=== PATIENT | female | born 1985 | race Caucasian/White ===

== ENCOUNTER 2020-04-05 16:36 | Emergency (ER) | payer SELFPAY ==
[~2020-04-05] VITALS: Ht 157.5 cm; Wt 52.2 kg
[2020-04-05 16:43] VITALS: BP 119/63
[2020-04-05] MEDS ORDERED: HYDROcodone/APAP 5 MG/325 MG (LORTAB) TAB PO ONE (17:00)
--- NOTE | 2020-04-05 17:02 | ED Back Pain ---
General Chief Complaint: Back Problems Stated Complaint: LEFT SIDE PAIN Nursing Triage Note: PT AMB TO [facility] COMPLAINT OF LEFT SIDE BACK PAIN. STATES HURT HER BACK WHILE AT WORK. HAS BEEN SEEN BY URGENT CARE FOR WORK COMP AND HAS APPOINTMENT TO SEE SPECIALIST TOMORROW. Nursing Sepsis Screen: No Definite Risk Source of Information: Patient Exam Limitations: No Limitations History of Present Illness Date Seen by Provider: Apr 05, 2020 Time Seen by Provider: 16:50 Initial Comments Here with uncontrolled left low back pain after injury yesterday at work. 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 They're concerned that she has sciatic injury. She was seen by the Worker's Compensation doctor deny mason prescribed ibuprofen and cyclobenzaprine as well as a steroid. She states the pain is relentless and then resolved. It's on the left side. She denies numbness between her legs, bowel or bladder incontinence or weakness. She does have follow-up with specialist tomorrow but couldn't take the pain so came here for further pain control. Timing/Duration: 24 Hours Severity: Moderate Pain/Injury Location: Back Radiation: Buttocks Method of Injury: Other (lifting) Modifying Factors: Worse With Immobilization, Worse With Movement Associated Symptoms: muscle spasms; No weakness, No numbness in legs/feet, No tingling in legs/feet, No sensory/motor loss; lower back pain; No loss of bladder control, No loss of bowel control Allergies and Home Medications Allergies Coded Allergies: No Known Drug Allergies (Unverified , 04/05/20) Patient Home Medication List Home Medication List Reviewed: Yes Review of Systems Constitutional: No chills, No fever Respiratory: no symptoms reported Cardiovascular: no symptoms reported Gastrointestinal: no symptoms reported Genitourinary: no symptoms reported Musculoskeletal: see HPI Psychiatric/Neurological: See HPI Past Memwteg-Fmluak-Lvxzpc Hx Past Med/Social Hx: Reviewed Nursing Past Med/Soc Hx Patient Social History Alcohol Use: Denies Use Recreational Drug Use: No Smoking Status: Current Everyday Smoker Recent Foreign Travel: No Contact w/Someone Who Travel: No Recent Infectious Disease Expo: No Recent Hopitalizations: No Immunizations Up To Date Tetanus Booster (TDap): Unknown PED Vaccines UTD: Yes Seasonal Allergies Seasonal Allergies: No Past Medical History Surgeries: Yes Section, Tubal Ligation Respiratory: No Cardiac: No Neurological: No Gastrointestinal: No Musculoskeletal: No Endocrine: No HEENT: No Cancer: No Psychosocial: Yes Anxiety Integumentary: No Blood Disorders: No Family Medical History Reviewed Nursing Family Hx Physical Exam Vital Signs Vital Signs - First Documented 04/05/20 16:43 Pulse 76 Resp 20 B/P (MAP) 119/63 (81) Pulse Ox 98 O2 Delivery Room Air Capillary Refill : Less Than 3 Seconds Height, Weight, BMI Height: '" Weight: lbs. oz. kg; 21.00 BMI Method: General Appearance: No Apparent Distress, WD/WN Cardiovascular: Regular Rate, Rhythm, No Murmur Respiratory: Lungs Clear, Normal Breath Sounds Back: No Vertebral Tenderness, Muscle Spasm (left low paraspinous), Other (tender at the left SI joint) Neurologic/Psychiatric: Alert, Oriented x3 Skin: Normal Color, Warm/Dry Progress/Results/Core Measures Results/Orders My Orders Orders - CARLOS MUSTAFA MD Lortab 5mg Po (04/05/20 17:00) Vital Signs/I&O 04/05/20 16:43 Pulse 76 Resp 20 B/P (MAP) 119/63 (81) Pulse Ox 98 O2 Delivery Room Air Blood Pressure Mean: 81 Progress Progress Note : Progress Note Seen and evaluated. I did discuss [id number]-[id number] options to add to her the rapy. We will give hydrocodone 5/325 one tablet by mouth now. She will follow-up with her specialist tomorrow. Discharged home with return precautions. Patient verbalize understanding instructions and agreement with plan. Departure Impression Primary Impression: Left low back pain Qualified Codes: M54.42 - Lumbago with sciatica, left side Disposition: 01 HOME, SELF-CARE Condition: Stable Departure-Patient Inst. Decision time for Depature: 17:01 Patient Instructions: Low Back Pain (DC) Add. Discharge Instructions: All discharge instructions reviewed with patient and/or family. Voiced understanding. You may use ajie-pkq-atlonaz Icy Hot with lidocaine patches, Aspercreme with lid ocaine patches, Salonpas with lidocaine patches or similar items to area of concern per package directions. You may take ibuprofen 600 mg every 6 hours as needed for pain. You may also take Tylenol/acetaminophen 1000 mg every 8 hours as needed for pain. Follow-up with your specialist tomorrow for recheck and further evaluation. Return for worse pain, weakness, numbness between your legs, difficulties with walking or going to the bathroom or other concerns as needed. CARLOS MUSTAFA MD Apr 05, 2020 17:02
== END 2020-04-05 17:15 | disposition home or self-care (01) ==
LOC: ER 16:37
DX: M54.42 Lumbago with sciatica, left side (principal); F17.200 Nicotine dependence, unspecified, uncomplicated
CPT/HCPCS: 99283

== ENCOUNTER 2020-04-20 20:53 | Emergency (ER) | payer SELFPAY ==
[~2020-04-20] VITALS: Ht 157.5 cm; Wt 52.2 kg
--- NOTE | 2020-04-20 21:20 | ED Abdominal Pain ---
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 Timing/Duration: 1-3 Hours Severity/Quality: Moderate Radiation: No Radiation Activities at Onset: Activity Modifying Factors: Worsens With Movement, Worsens With Palpation Associated Symptoms: Denies Symptoms (NAKUL GONZALEZ APRN) Allergies and Home Medications Allergies Coded Allergies: No Known Drug Allergies (Unverified , 04/05/20) Patient Home Medication List Home Medication List Reviewed: Yes (NAKUL GONZALEZ APRN) Review of Systems Review of Systems Constitutional: see HPI EENTM: No Symptoms Reported Respiratory: No Symptoms Reported Cardiovascular: No Symptoms Reported Gastrointestinal: See HPI, Abdominal Pain Genitourinary: No Symptoms Reported Musculoskeletal: no symptoms reported Skin: no symptoms reported Psychiatric/Neurological: No Symptoms Reported Endocrine: No Symptoms Reported Hematologic/Lymphatic: No Symptoms Reported (NAKUL GONZALEZ APRN) Past Bilkegw-Ovgcdr-Klxvle Hx Patient Social History Recent Foreign Travel: No Contact w/Someone Who Travel: No Recent Hopitalizations: No (NAKUL GONZALEZ APRN) Immunizations Up To Date Tetanus Booster (TDap): Unknown PED Vaccines UTD: Yes (NAKUL GONZALEZ APRN) Seasonal Allergies Seasonal Allergies: No (NAKUL GONZALEZ APRN) Past Medical History Surgeries: Yes Section, Tubal Ligation Respiratory: No Cardiac: No Neurological: No Gastrointestinal: No Musculoskeletal: No Endocrine: No HEENT: No Cancer: No Psychosocial: Yes Anxiety Integumentary: No Blood Disorders: No (NAKUL GONZALEZ APRN) Physical Exam Vital Signs Vital Signs - First Documented 04/20/20 21:10 Temp 36.3 Pulse 73 Resp 20 B/P (MAP) 111/59 (76) Pulse Ox 98 O2 Delivery Room Air (ANUEL CHIN) Vital Signs Capillary Refill : (NAKUL GONZALEZ APRN) Height/Weight/BMI Height: '" Weight: lbs. oz. kg; 21.00 BMI Method: General Appearance: WD/WN, no apparent distress HEENT: PERRL/EOMI, normal ENT inspection Neck: non-tender, full range of motion Respiratory: lungs clear, normal breath sounds, no respiratory distress, no accessory muscle use Cardiovascular: regular rate, rhythm, no murmur Gastrointestinal: normal bowel sounds, soft, tenderness Genital/Rectal: other (pelvic exam with tee RN at the bedside. No CMT, a bit of blood in the vaginal vault. small amount of purulent mucoid discharge from cervical os. ) Extremities: normal range of motion, non-tender Neurologic/Psychiatric: alert, normal mood/affect, oriented x 3 Skin: normal color, warm/dry (NAKUL GONZALEZ APRN) Progress/Results/Core Measures Results/Orders Lab Results Laboratory Tests Test 04/20/20 21:14 04/20/20 21:20 04/20/20 22:04 Range/Units Urine Color YELLOW Urine Clarity SL CLOUDY Urine pH 6.5 5-9 Urine Specific [place] 1.025 H 1.016-1.022 Urine Protein 1+ H NEGATIVE Urine Glucose (UA) NEGATIVE NEGATIVE Urine Ketones TRACE H NEGATIVE Urine Nitrite NEGATIVE NEGATIVE Urine Bilirubin NEGATIVE NEGATIVE Urine Urobilinogen 1.0 < = 1.0 MG/DL Urine Leukocyte Esterase TRACE H NEGATIVE Urine RBC (Auto) 3+ H NEGATIVE Urine RBC 5-10 H /HPF Urine WBC 10-25 H /HPF Urine Squamous Epithelial Cells 25-50 H /HPF Urine Crystals PRESENT H /LPF Urine Amorphous Sediment FEW LIONEL URATES H /LPF Urine Bacteria MODERATE H /HPF Urine Casts NONE /LPF Urine Mucus NEGATIVE /LPF Urine Culture Indicated YES Urine Opiates Screen NEGATIVE NEGATIVE Urine Oxycodone Screen NEGATIVE NEGATIVE Urine Methadone Screen NEGATIVE NEGATIVE Urine Propoxyphene Screen NEGATIVE NEGATIVE Urine Barbiturates Screen NEGATIVE NEGATIVE Ur Tricyclic Antidepressants Screen NEGATIVE NEGATIVE Urine Phencyclidine Screen NEGATIVE NEGATIVE Urine Amphetamines Screen NEGATIVE NEGATIVE Urine Methamphetamines Screen NEGATIVE NEGATIVE Urine Benzodiazepines Screen NEGATIVE NEGATIVE Urine Cocaine Screen NEGATIVE NEGATIVE Urine Cannabinoids Screen NEGATIVE NEGATIVE White Blood Count 13.1 H 4.3-11.0 10^3/uL Red Blood Count 4.41 3.80-5.11 10^6/uL Hemoglobin 14.4 11.5-16.0 g/dL Hematocrit 43 35-52 % Mean Corpuscular Volume 98 80-99 fL Mean Corpuscular Hemoglobin 33 25-34 pg Mean Corpuscular Hemoglobin Concent 33 32-36 g/dL Red Cell Distribution Width 13.0 10.0-14.5 % Platelet Count 312 130-400 10^3/uL Mean Platelet Volume 9.7 9.0-12.2 fL Immature Granulocyte % (Auto) 0 % Neutrophils (%) (Auto) 67 42-75 % Lymphocytes (%) (Auto) 20 12-44 % Monocytes (%) (Auto) 11 0-12 % Eosinophils (%) (Auto) 1 0-10 % Basophils (%) (Auto) 1 0-10 % Neutrophils # (Auto) 8.8 H 1.8-7.8 10^3/uL Lymphocytes # (Auto) 2.6 1.0-4.0 10^3/uL Monocytes # (Auto) 1.4 H 0.0-1.0 10^3/uL Eosinophils # (Auto) 0.2 0.0-0.3 10^3/uL Basophils # (Auto) 0.1 0.0-0.1 10^3/uL Immature Granulocyte # (Auto) 0.1 0.0-0.1 10^3/uL Sodium Level 139 135-145 MMOL/L Potassium Level 4.1 3.6-5.0 MMOL/L Chloride Level 106 98-107 MMOL/L Carbon Dioxide Level 24 21-32 MMOL/L Anion Gap 9 5-14 MMOL/L Blood Urea Nitrogen 11 7-18 MG/DL Creatinine 1.01 0.60-1.30 MG/DL Estimat Glomerular Filtration Rate > 60 BUN/Creatinine Ratio 11 Glucose Level 89 70-105 MG/DL Calcium Level 9.1 8.5-10.1 MG/DL Serum Test, Qualitative NEGATIVE NEGATIVE (ANUEL CHIN) Medications Given in ED Current Medications Medications Dose Ordered Sig/Alicia Route Start Time Stop Time Status Last Admin Dose Admin Ceftriaxone Sodium 1000 mg/ Sterile Water 10 ml @ 200 mls/hr ONCE ONCE IV 04/20/20 22:15 04/20/20 22:17 DC 04/20/20 22:26 200 MLS/HR Ketorolac Tromethamine 15 mg ONCE ONCE IVP 04/20/20 21:30 04/20/20 21:31 DC 04/20/20 21:33 15 MG (ANUEL CHIN) Vital Signs/I&O 04/20/20 21:10 Temp 36.3 Pulse 73 Resp 20 B/P (MAP) 111/59 (76) Pulse Ox 98 O2 Delivery Room Air (ANUEL CHIN) Progress Progress Note : Time: 22:20 Progress Note I assumed care of this patient. Report of pelvic exam showing no cervical motion tenderness but positive for yellow-green mucoid discharge. She has discharge after lifting someone with a bloody appearance per history. I agree with the above documented history and physical exam. Plan is to give her Rocephin and azithromycin for cervicitis get outpatient labs ordered and obtain a CT of the abdomen and pelvis. We are awaiting the results of the CT abdomen pelvis which the patient is currently down in radiology obtaining. (ANUEL CHIN) Diagnostic Imaging Diagonstic Imaging: CT Plain Films/CT/US/NM/MRI: abdomen, pelvis Comments Prominent follicle left ovary. Tubal occlusive device noted. 6 mm pulmonary nodule within the right lower lobe. In the absence of prior imaging demonstrate stability, consider follow-up according to Fleischner Society criteria. Reviewed: Reviewed Night [facility] Study, Reviewed by Me (ANUEL CHIN) Departure Communication (Admissions) 0-Rocephin and Zithromax ordered for the cervical discharge. Spoke with Dr. Chin, he has taken over the case, I will be leaving. CT is pending and wet prep is pending. I did discuss with the patient the sign of infection on cervix. (NAKUL GONZALEZ APRN) Impression Primary Impression: Cervical discharge Additional Impressions: Pelvic pain Right lower lobe pulmonary nodule Disposition: HOME, SELF-CARE Condition: Stable Departure-Patient Inst. Decision time for Depature: 22:19 (NAKUL GONZALEZ APRN) Referrals: NO,LOCAL PHYSICIAN (PCP/Family) Primary Care Physician Patient Instructions: Acute Pelvic Pain Add. Discharge Instructions: 1. Return to ER for any concerns 2. Follow-up with your doctor next week and discuss Right lower lobe 6 mm nodule of the lung. 3. Naproxen 2 tablets twice a day as necessary for pain. 4. Tylenol 1000 mg every 8 hours as necessary for pain. 5. heating pads as necessary for discomfort. Work/School Note: Work Release Form Date Seen in the Emergency Department: Apr 20, 2020 Return to Work: Apr 22, 2020 Restrictions: No Restrictions NAKUL GONZALEZ APRN Apr 20, 2020 21:20 ANUEL CHIN Apr 20, 2020 22:29
[2020-04-20 21:23] LABS: BILIRUBIN,URINE NEGATIVE (NEGATIVE); CLARITY,URINE SL CLOUDY; COLOR,URINE YELLOW; GLUCOSE, URINE (UA) NEGATIVE (NEGATIVE); KETONES,URINE TRACE (NEGATIVE); LEUKOCYTE ESTERASE ,URINE TRACE (NEGATIVE); NITRITE,URINE NEGATIVE (NEGATIVE); PH,URINE 6.5 (5-9); PROTEIN,URINE 1+ (NEGATIVE)
[2020-04-20] MEDS ORDERED: KETOROLAC 30 MG/ML VIAL IVP ONE (21:30)
[2020-04-20 21:31] LABS: BASOPHILS # (AUTO) 0.1 10^3/uL (0.0-0.1); BASOPHILS % (AUTO) 1 % (0-10); EOSINOPHILS # (AUTO) 0.2 10^3/uL (0.0-0.3); EOSINOPHILS % (AUTO) 1 % (0-10); HEMATOCRIT 43 % (35-52); HEMOGLOBIN 14.4 g/dL (11.5-16.0); LYMPHOCYTES # (AUTO) 2.6 10^3/uL (1.0-4.0); LYMPHOCYTES % (AUTO) 20 % (12-44); MEAN CORPUSCULAR HEMOGLOBIN 33 pg (25-34); MEAN CORPUSCULAR HGB CONC 33 g/dL (32-36); MEAN CORPUSCULAR VOLUME 98 fL (80-99); MEAN PLATELET VOLUME 9.7 fL (9.0-12.2); MONOCYTES # (AUTO) 1.4 10^3/uL (0.0-1.0); MONOCYTES % (AUTO) 11 % (0-12); NEUTROPHILS # (AUTO) 8.8 10^3/uL (1.8-7.8); NEUTROPHILS % (AUTO) 67 % (42-75); PLATELET COUNT 312 10^3/uL (130-400); WHITE BLOOD COUNT 13.1 10^3/uL (4.3-11.0)
[2020-04-20 21:39] LABS: BACTERIA,URINE MODERATE /HPF; SQUAMOUS EPITHELIAL CELL,UR 25-50 /HPF
[2020-04-20 21:40] LABS: AMORPHOUS SEDIMENT,UR FEW AMOR URATES /LPF
[2020-04-20 21:42] LABS: AMPHETAMINE SCREEN, URINE NEGATIVE (NEGATIVE); BARBITURATE SCREEN URINE NEGATIVE (NEGATIVE); BENZODIAZEPINES SCREEN URINE NEGATIVE (NEGATIVE); CANNABINOID SCREEN, URINE NEGATIVE (NEGATIVE); COCAINE SCREEN URINE NEGATIVE (NEGATIVE); METHADONE STAT NEGATIVE (NEGATIVE); METHAMPHETAMINE SCREEN URINE S NEGATIVE (NEGATIVE); OPIATE SCREEN URINE NEGATIVE (NEGATIVE); OXYCODONE STAT NEGATIVE (NEGATIVE); PROPOXYPHENE STAT NEGATIVE (NEGATIVE); TRICYCLIC ANTIDEPRESSANTS SCRE NEGATIVE (NEGATIVE)
[2020-04-20 22:00] LABS: CHLORIDE 106 MMOL/L (98-107); POTASSIUM 4.1 MMOL/L (3.6-5.0); SODIUM 139 MMOL/L (135-145)
[2020-04-20 22:01] LABS: CALCIUM 9.1 MG/DL (8.5-10.1); GLUCOSE 89 MG/DL (70-105)
[2020-04-20 22:03] LABS: CARBON DIOXIDE 24 MMOL/L (21-32)
[2020-04-20 22:05] LABS: CREATININE SERUM 1.01 MG/DL (0.60-1.30); GFR ESTIMATED > 60
[2020-04-20 22:06] LABS: BUN/CREATININE RATIO 11
[2020-04-20] MEDS ORDERED: cefTRIAXone FOR IV USE 1,000 MG in WATER (STERILE) FOR INJECTION 10 ML IV ONE (22:15)
[2020-04-20] MEDS ORDERED: AZITHROMYCIN 250 MG TAB (ZITHROMAX) PO SCH (22:15)
[2020-04-20 23:08] VITALS: BP 112/67
--- NOTE | 2020-04-21 07:11 | Diagnostic Imaging Report ---
PROCEDURE: CT abdomen and pelvis without contrast. TECHNIQUE: Multiple contiguous axial images were obtained through the abdomen and pelvis without the use of intravenous contrast. Auto Exposure Controls were utilized during the CT exam to meet ALARA standards for radiation dose reduction. INDICATION: Left lower quadrant and pelvic pain. Vaginal bleeding. COMPARISON: None FINDINGS: Included portions of lung bases show 6 mm micronodule within the posterior medial base of the right lower lobe. There is no prior available for comparison. Juxtapleural micronodules are also noted posteriorly within the left lower lobe and measures 4 mm (images 13 and 6, series 2). CT ABDOMEN: Normal appendix is identified. Small bowel loops are nondistended. The kidneys, adrenal glands, spleen, pancreas, and liver have an unremarkable noncontrast CT appearance. There is no loculated fluid collection, free fluid, nor free air within the abdomen. No abnormal mesenteric or retroperitoneal adenopathy is seen. Osseous structures show no acute abnormalities. CT pelvis: Urinary bladder is unopacified and minimally distended. No calculi are seen within urinary bladder. Surgical clips related previous tubal ligation are noted. No abnormal pelvic adenopathy is seen. There is no loculated fluid collection, free fluid or free air within the pelvis. Osseous structures show no acute abnormalities. IMPRESSION: 1. No acute abnormalities are seen within the abdomen or pelvis. 2. Bilateral pulmonary micronodules. Please see below for follow-up recommendations. PULMONARY NODULE FOLLOW-UP Multiple nodules: <6 mm: * Low risk patient - no routine follow up * High risk patient - optional CT at 12 months 6-8 mm in size: * Low risk patient - Ct at 3-6 months, then consider CT at 18-24 months * High risk patient - CT at 3-6 months, then at 18-24 months >8 mm: * Low risk patient - CT at 3-6 months, then consider CT at 18-24 months * High risk patient - CT at 3-6 months, then at 18-24 months (Use most suspicious nodule as guide to management. Follow up interval may vary according to size and risk) Dictated by: Dictated on workstation # [id number]
== END 2020-04-20 23:08 | disposition home or self-care (01) ==
LOC: EDUNIT# 20:53 → ER 20:54
DX: N89.8 Other specified noninflammatory disorders of vagina (principal); R91.1 Solitary pulmonary nodule
CPT/HCPCS: 36415; 74176; 80048; 80306; 81000; 84703; 85025; 87070; 87088; 87205; 87210; 87491; 87591

== ENCOUNTER 2020-11-16 16:13 | Emergency (ER) | payer SELFPAY ==
[~2020-11-16] VITALS: Ht 158 cm; Wt 54.0 kg
[2020-11-16 16:20] VITALS: BP 116/81
--- NOTE | 2020-11-16 16:44 | ED Cough/URI ---
General Chief Complaint: Fever-Adult/Adol Stated Complaint: FEVER/MUSCLE PAIN/HEADACHE/CHILLS Nursing Triage Note: FEVER STARTING ON SAT. Sepsis Screen: Possible Severe Sepsis Risk Source: patient Exam Limitations: no limitations History of Present Illness Date Seen by Provider: Nov 16, 2020 Time Seen by Provider: 16:30 Initial Comments To ER with reports of fever and nasal congestion as well as headache that began 48 hours ago. She denies cough or shortness of breath, denies nausea vomiting diarrhea or dysuria. 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 Timing/Duration: constant Severity/Quality: no cough Associated Symptoms: fever/chills (Fever max at home 102), headache Allergies and Home Medications Allergies Coded Allergies: No Known Drug Allergies (Unverified , 04/05/20) Home Medications No Active Prescriptions or Reported Meds Patient Home Medication List Home Medication List Reviewed: Yes Review of Systems Review of Systems Constitutional: see HPI, chills, fever EENTM: see HPI Respiratory: no symptoms reported Cardiovascular: no symptoms reported Genitourinary: no symptoms reported Musculoskeletal: no symptoms reported Psychiatric/Neurological: No Symptoms Reported Hematologic/Lymphatic: No Symptoms Reported Past Qelfiny-Ogohjb-Qxiiqm Hx Patient Social History Alcohol Use: Denies Use Smoking Status: Current Everyday Smoker Recent Infectious Disease Expo: No Recent Hopitalizations: No Immunizations Up To Date Tetanus Booster (TDap): Unknown PED Vaccines UTD: Yes Seasonal Allergies Seasonal Allergies: No Past Medical History Surgeries: Yes Section, Tubal Ligation Respiratory: No Cardiac: No Neurological: No Gastrointestinal: No Musculoskeletal: No Endocrine: No HEENT: No Cancer: No Psychosocial: Yes Anxiety Integumentary: No Blood Disorders: No Physical Exam Vital Signs - First Documented 11/16/20 16:20 Temp 37.3 Pulse 92 Resp 16 B/P (MAP) 116/81 (93) Pulse Ox 98 O2 Delivery Room Air Capillary Refill : Less Than 3 Seconds Height: '" Weight: lbs. oz. kg; 21.00 BMI Method: General Appearance: WD/WN, no apparent distress, other (She is afebrile here despite no use of antipyretics today) Eyes: Bilateral Eye Normal Inspection, Bilateral Eye PERRL, Bilateral Eye EOMI HEENT: PERRL/EOMI, normal ENT inspection, TMs normal Neck: non-tender, full range of motion Respiratory: normal breath sounds, no respiratory distress, no accessory muscle use Cardiovascular: regular rate, rhythm, no murmur Gastrointestinal: normal bowel sounds, non tender, soft Neurologic/Psychiatric: alert, normal mood/affect, oriented x 3 Skin: normal color, warm/dry nontoxic appearing, without tachycardia without tachypnea without hypoxia. Progress/Results/Core Measures Suspected Sepsis Recent Fever Within 48 Hours: Yes Infection Criteria Present: Suspected New Infection New/Unexplained Altered Menta: No Sepsis Screen: Possible Severe Sepsis Risk SIRS Temperature: Pulse: 92 Respiratory Rate: 16 Blood Pressure 116 /81 Mean: 93 Results/Orders Lab Results Laboratory Tests Test 11/16/20 16:29 Range/Units Coronavirus 2019 (LEDY) Not Detected Not Detecte Micro Results Microbiology 11/16/20 Influenza Types A,B Antigen (TIMA) - Final, Complete My Orders Orders - NAKUL GONZALEZ APRN Influenza A And B Antigens (11/16/20 16:41) Covid 19 Inhouse Test (11/16/20 16:41) Vital Signs/I&O 11/16/20 16:20 Temp 37.3 Pulse 92 Resp 16 B/P (MAP) 116/81 (93) Pulse Ox 98 O2 Delivery Room Air Capillary Refill : Less Than 3 Seconds Blood Pressure Mean: 93 Departure Impression Primary Impression: Viral syndrome Disposition: 01 HOME, SELF-CARE Condition: Stable Departure-Patient Inst. Decision time for Depature: 17:11 Referrals: NO,LOCAL PHYSICIAN (PCP/Family) Primary Care Physician Patient Instructions: Viral Syndrome (DC) Add. Discharge Instructions: 1. Tylenol and ibuprofen for pain or fever control. Follow-up with your doctor next week. Return to ER for any worsening. All discharge instructions reviewed with patient and/or family. Voiced understanding. Scripts No Active Prescriptions or Reported Meds Work/School Note: Work Release Form Date Seen in the Emergency Department: Nov 16, 2020 Return to Work: Nov 18, 2020 NAKUL GONZALEZ APRN Nov 16, 2020 16:44
== END 2020-11-16 17:10 | disposition home or self-care (01) ==
LOC: EDUNIT# 16:13 → ER 16:15
DX: B34.9 Viral infection, unspecified (principal); F17.200 Nicotine dependence, unspecified, uncomplicated; Z20.822 Contact with and (suspected) exposure to COVID-19
CPT/HCPCS: 87804; U0002; 87635

== ENCOUNTER 2020-11-24 19:35 | Emergency (ER) | payer SELFPAY ==
[~2020-11-24] VITALS: Ht 158 cm; Wt 54.0 kg
[2020-11-24 19:43] VITALS: BP 105/61
--- NOTE | 2020-11-24 20:12 | ED Integumentary General ---
General Chief Complaint: Skin/Wound Problems Stated Complaint: RASH ON L ARM / ITCHING Nursing Triage Note: PRESENTS TO FT2 VIA POV ACCOMPANIED BY S/O W/CO RASH TO L FOREARM. 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 STATES RASH HAS PROGRESSIVELY SPREAD SINCE ONSET ON 11/23/20. History of Present Illness Date Seen by Provider: November 24, 2020 Time Seen by Provider: 19:55 Initial Comments 35-year-old female presents with a rash to her left forearm that began yesterday. She is unsure if she was exposed to poison magda or poison sumac. She has been using tubu-krv-puswqhy topical creams with no improvement. She has not noticed it to spread beyond her left forearm. Timing/Duration: yesterday Possible Cause: exposure to allergen Modifying Factors: improves with calamine lotion Associated Symptoms: denies symptoms Allergies and Home Medications Allergies Coded Allergies: No Known Drug Allergies (Unverified , 04/05/20) Home Medications No Active Prescriptions or Reported Meds Patient Home Medication List Home Medication List Reviewed: Yes Review of Systems Review of Systems Constitutional: no symptoms reported, see HPI Skin: see HPI, rash All Other Systems Reviewed Negative Unless Noted: Yes Past Hneuquo-Ezlccs-Iqwpsu Hx Past Med/Social Hx: Reviewed Nursing Past Med/Soc Hx Patient Social History Alcohol Use: Denies Use Smoking Status: Current Everyday Smoker 2nd Hand Smoke Exposure: Yes Recent Infectious Disease Expo: No Recent Hopitalizations: No Immunizations Up To Date Tetanus Booster (TDap): Unknown PED Vaccines UTD: Yes Seasonal Allergies Seasonal Allergies: No Past Medical History Surgeries: Yes Section, Tubal Ligation Respiratory: No Cardiac: No Neurological: No Gastrointestinal: No Musculoskeletal: No Endocrine: No HEENT: No Cancer: No Psychosocial: Yes Anxiety Integumentary: No Blood Disorders: No Physical Exam Vital Signs Vital Signs - First Documented 11/24/20 19:43 Temp 36.4 Pulse 81 Resp 18 B/P (MAP) 105/61 (76) Pulse Ox 99 O2 Delivery Room Air Capillary Refill : Less Than 3 Seconds General Appearance: WD/WN Neck: non-tender, full range of motion, supple, normal inspection Cardiovascular: normal peripheral pulses, regular rate, rhythm Respiratory: chest non-tender, lungs clear, normal breath sounds Neurologic/Psychiatric: no motor/sensory deficits, alert, normal mood/affect, oriented x 3 Skin: normal color Skin Problem Location: upper extremities (Left forearm) Skin Problem Character: macules, papules Progress/Results/Core Measures Results/Orders My Orders Orders - MILDRED JACOBS Dexamethasone Injection (Decadron Inje (11/24/20 20:15) Medications Given in ED Current Medications Medications Dose Ordered Sig/Alicia Route Start Time Stop Time Status Last Admin Dose Admin Dexamethasone Sodium Phosphate 10 mg ONCE ONCE IM 11/24/20 20:15 11/24/20 20:16 DC 11/24/20 20:19 10 MG Vital Signs/I&O 11/24/20 19:43 Temp 36.4 Pulse 81 Resp 18 B/P (MAP) 105/61 (76) Pulse Ox 99 O2 Delivery Room Air Blood Pressure Mean: 76 Departure Impression Primary Impression: Allergic contact dermatitis Qualified Codes: L23.89 - Allergic contact dermatitis due to other agents Disposition: HOME, SELF-CARE Condition: Improved Departure-Patient Inst. Decision time for Depature: 20:08 Referrals: NO,LOCAL PHYSICIAN (PCP/Family) Primary Care Physician Patient Instructions: Contact Dermatitis (DC) Add. Discharge Instructions: Continue to apply the calamine lotion 3-4 times daily as needed to rash. Take Benadryl 25 mg every 8 hours as needed for itching or rash. Take Pepcid 20 mg twice daily for the next 3 to 4 days. Follow-up with your primary care provider if symptoms are not improving or worsen. You may use Aveeno soaks to make a paste and put over the area of the rash. Return to the emergency department for new, urgent care needs. All discharge instructions reviewed with patient and/or family. Voiced understanding. Scripts No Active Prescriptions or Reported Meds MILDRED JACOBS November 24, 2020 20:12
== END 2020-11-24 20:23 | disposition home or self-care (01) ==
LOC: EDUNIT# 19:35 → ER 19:37
DX: L23.89 Allergic contact dermatitis due to other agents (principal); F17.200 Nicotine dependence, unspecified, uncomplicated
CPT/HCPCS: 99284

== ENCOUNTER 2021-01-01 21:34 | Emergency (ER) | payer SELFPAY | END 2021-01-01 22:32 | disposition left against medical advice (07) | LOC: EDUNIT# 21:34 → ER 21:35 | DX: M25.572 Pain in left ankle and joints of left foot (principal) ==

== ENCOUNTER 2021-05-04 19:05 | Emergency (ER) | payer OTHER ==
[~2021-05-04] VITALS: Ht 157.4 cm; Wt 52.3 kg
--- NOTE | 2021-05-04 19:24 | ED Headache ---
General Chief Complaint: Head/Cervical Problems Stated Complaint: MIGRAINE Source: patient History of Present Illness Date Seen by Provider: May 04, 2021 Time Seen by Provider: 19:15 Initial Comments PT ARRIVES VIA POV FROM HOME WITH MALE S.O. C/O HEADACHE SINCE YESTERDAY HEADACHE IS IN BACK OF HEAD HAS HAD "MIGRAINES' SINCE SHE WAS 12 YEARS OLD, AND THIS IS THE SAME HER CHRONIC HEADACHES STATES SHE GETS HEADACHES ABOUT EVERY 2 MONTHS NO VISION CHANGES NO NAUSEA/VOMITING NO NECK PAIN OR STIFFNESS NO DIZZINESS NO PARESTHESIAS OR MOTOR DEFICITS NO FEVER OR RECENT ILLNESS--STATES SHE ALWAYS HAS A RUNNY NOSE,DOES NOT TAKE ANYTHING FOR IT AND IS NO DIFFERENT THAN NORMAL TOOK 500 MG TYLENOL AT 10 AM TODAY, NOTHING ELSE FOR PAIN HAS NOT SOUGHT CARE UNTIL TODAY SYMPTOMS NO DIFFERENT TODAY LMP--END OF , NORMAL. PT HAS HAD BTL STATES SHE WORKS AT [employer] STATES SHE DIDN'T GO TO WORK YESTERDAY--"GOT MY TIRES FIXED INSTEAD"; BUT WORKED ALL DAY TODAY, AND WANTS A WORK EXCUSE FOR TOMORROW AND YESTERDAY. STATES SHE GOES TO WORK AT 0445 IN THE MORNING PT STATES SHE IS NOT VACCINATED AGAINST COVID, BUT SHE AND MALE S.O. HAD COVID- 19 IN FEBRUARY--NO HOSPITALIZATION OR TREATMENT NO KNOWN SICK CONTACTS PCP: [facility] Allergies and Home Medications Allergies Coded Allergies: No Known Drug Allergies (Unverified , 04/05/20) Patient Home Medication List Home Medication List Reviewed: Yes No Active Prescriptions or Reported Meds Review of Systems Review of Systems Constitutional: no symptoms reported Eyes: No Symptoms Reported Ears, Nose, Mouth, Throat: no symptoms reported Respiratory: no symptoms reported Cardiovascular: no symptoms reported Gastrointestinal: no symptoms reported Genitourinary: no symptoms reported : No LMP: Apr 17, 2021 Musculoskeletal: no symptoms reported Skin: no symptoms reported Psychiatric/Neurological: See HPI, Headache Past Qyfmtok-Xjhxap-Dktxoz Hx Patient Social History Tobacco Use?: Yes (1 PPD) Tobacco type used: Cigarettes Smoking Status: Current Everyday Smoker Use of E-Cig and/or Vaping dev: No Substance use?: No (DENIES) Alcohol Use?: No (DENIES) Pt feels they are or have been: No Immunizations Up To Date Tetanus Booster (TDap): Unknown PED Vaccines UTD: Yes Influenza Vaccine Up-to-Date: No; Not Current Seasonal Allergies Seasonal Allergies: No Past Medical History Surgery/Hospitalization HX: X 1 IN 2008 BTL IN 2010 Surgeries: Yes Section, Tubal Ligation Respiratory: No Cardiac: No Neurological: No : No Reproductive Disorders: 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 oz. kg; 21.00 BMI Method: General Appearance: WD/WN, no apparent distress, thin, other (DOES NOT APPEAR TO BE IN ANY DISCOMFORT OR DISTRESS) HEENT: PERRL/EOMI, normal ENT inspection, TMs normal, pharynx normal Neck: other (VERY MILD CERVICAL PARAVERTEBRAL MUSCLE SPASMS AND TENDERNESS; FUL L ROM WITHOUT DIFFICULTY. ) Cardiovascular: regular rate, rhythm, no murmur Respiratory: normal breath sounds, no respiratory distress, no accessory muscle use Gastrointestinal: normal bowel sounds, soft Back: normal inspection Extremities: normal inspection Psychiatric: alert, oriented x 3 Crainal Nerves: normal hearing, normal speech, PERRL Coordination/Gait: normal gait Motor/Sensory: no motor deficit, no sensory deficit, no pronator drift Skin: normal color, warm/dry, tattoos/piercings Progress/Results/Core Measures Results/Orders My Orders Orders - CONSTANTINO HOWARD DO Ketorolac Injection (Toradol Injection) (05/04/21 19:30) Orphenadrine Inj (Ed Only) (Norflex Inje (05/04/21 19:30) Medications Given in ED Current Medications Medications Dose Ordered Sig/Alicia Route Start Time Stop Time Status Last Admin Dose Admin Ketorolac Tromethamine 60 mg ONCE ONCE IM 05/04/21 19:30 05/04/21 19:31 DC 05/04/21 19:25 60 MG Orphenadrine Citrate 60 mg ONCE ONCE IM 05/04/21 19:30 05/04/21 19:31 DC 05/04/21 19:26 60 MG Vital Signs/I&O 05/04/21 19:16 Temp 36.8 Pulse 75 Resp 18 B/P (MAP) 106/72 (83) Pulse Ox 98 O2 Delivery Room Air Progress Progress Note : Progress Note GIVEN TORADOL AND NORFLEX HEADACHE RELIEVED AT DISMISSAL Departure Impression Primary Impression: Headache Disposition: 01 HOME, SELF-CARE Condition: Stable Departure-Patient Inst. Decision time for Depature: 19:37 Referrals: [facility] Patient Instructions: Headache, Adult (DC) Add. Discharge Instructions: LOTS OF CLEAR LIQUIDS TYLENOL 1 GRAM/ MOTRIN 800 MG 4 TIMES A DAY NEEDED FOR PAIN MOIST HEAT TO NECK AT 20 MINUTE INTERVALS, YOU MAY ALTERNATE WITH ICE PACK IF NEEDED FOLLOW UP WITH [facility] TOMORROW IF NO BETTER All discharge instructions reviewed with patient and/or family. Voiced understanding. Scripts No Active Prescriptions or Reported Meds Work/School Note: Work Release Form Date Seen in the Emergency Department: May 04, 2021 CONSTANTINO HOWARD DO May 04, 2021 19:24
[2021-05-04] MEDS ORDERED: ORPHENADRINE 60 MG/2 ML (NORFLEX) AMP (ED ONLY) IM ONE (19:30)
[2021-05-04] MEDS ORDERED: KETOROLAC 60 MG/2 ML VIAL IM ONE (19:30)
[2021-05-04 19:43] VITALS: BP 102/66
== END 2021-05-04 19:41 | disposition home or self-care (01) ==
LOC: EDUNIT# 19:05 → ER 19:06
DX: R51.9 Headache, unspecified (principal); F17.210 Nicotine dependence, cigarettes, uncomplicated
CPT/HCPCS: 99284

== ENCOUNTER 2021-09-26 11:09 | Emergency (ER) | payer SELFPAY ==
[~2021-09-26] VITALS: Ht 154.4 cm; Wt 53.6 kg
[2021-09-26] MEDS ORDERED: ACHD5005 PO (11:38)
[2021-09-26] MEDS ORDERED: NAPR500T8 PO (11:38)
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
[2021-09-26 11:44] VITALS: BP 113/71
== END 2021-09-26 11:44 | disposition home or self-care (01) ==
LOC: EDUNIT# 11:09 → ER 11:13
DX: M25.511 Pain in right shoulder (principal); Z72.0 Tobacco use
CPT/HCPCS: 99282; A4565

== ENCOUNTER 2021-10-16 20:18 | Emergency (ER) | payer OTHER ==
[~2021-10-16] VITALS: Ht 157.5 cm; Wt 54.4 kg
[~2021-10-16 20:18] MED LIST: ACHD5005 PO; NAPR500T8 PO
[2021-10-16 20:35] VITALS: BP 103/70
[2021-10-16] MEDS ORDERED: NAPR-1071 PO (20:41)
[2021-10-16] MEDS ORDERED: METH-732 PO (20:41)
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
--- NOTE | 2021-10-16 20:52 | Diagnostic Imaging Report ---
INDICATION: Right-sided pain, injury radicular into the left lower extremity. FINDINGS: Lumbar statures are normal. The alignment is unremarkable. No acute or suspect endplate irregularity . Some mild degenerative sclerotic facet arthrosis at the L5-S1 level. No acute appearing abnormality, however, found. There is bilateral tubal ligation clips. No suspicious calcifications. IMPRESSION: Mild lumbosacral facet arthrosis but no acute or suspicious abnormality found. Dictated by: Dictated on workstation # [id number]
[2021-10-16] MEDS: ORPHENADRINE 60 MG/2 ML (NORFLEX) AMP (ED ONLY) IM ONE ×2 (20:54→20:57)
[2021-10-16] MEDS: KETOROLAC 60 MG/2 ML VIAL IM ONE ×2 (20:54→20:57)
== END 2021-10-16 20:58 | disposition home or self-care (01) ==
LOC: EDUNIT# 20:18 → ER 20:20
DX: S30.0XXA Contusion of lower back and pelvis, initial encounter (principal); Y04.2XXA Assault by strike against or bumped into by another person, initial encounter
CPT/HCPCS: 72100

== ENCOUNTER 2021-11-12 23:35 | Emergency (ER) | payer SELFPAY ==
[~2021-11-12] VITALS: Ht 157.5 cm; Wt 51.5 kg
[~2021-11-12 23:35] MED LIST changes: +METH-732 PO; +NAPR-1071 PO
[2021-11-13] MEDS ORDERED: ceFAZolin INJECTION 1,000 MG in NS (IVPB) 50 ML IV ONE ×2
--- NOTE | 2021-11-13 00:06 | ED General ---
General Chief Complaint: Breast Complaints Stated Complaint: HARD LUMP UNDER LEFT NIPPLE,SLIGHT FEVER Nursing Triage Note: C/O LUMP UNDER LEFT BREAST X2 WEEKS, CHANGE IN NIPPLE COLOR, INTERMITTANT FEVER SINCE MONDAY. Source of Information: Patient History of Present Illness Date Seen by Provider: Nov 12, 2021 Time Seen by Provider: 23:48 Initial Comments PT ARRIVES VIA POV FROM HOME C/O LUMP TO LEFT BREAST UNDER THE NIPPLE, FOR A FEW WEEKS STATES SHE BEGAN RUNNING A FEVER OF 101.9 LAST NIGHT TOOK TYLENOL 500 MG JUST PRIOR TO ARRIVAL OTHERWISE HAS NOT TAKEN ANYTHING ELSE FOR SYMPTOMS STATES HER NIPPLE HAS ALSO CHANGED COLOR NO DRAINAGE FROM THE NIPPLE NO OTHER SYMPTOMS HAS NOT SOUGHT CARE UNTIL TONIGHT NO DIFFERENT TONIGHT NEEDS AT WORK NOTE--DID NOT GO TO WORK TONIGHT AT 6:00 NO PRIOR BREAST PROBLEMS PT HAS NEVER HAD A MAMMOGRAM PT IS NOT OR DENIES ANY MEDICAL PROBLEMS OTHER THAN ANXIETY STATES "ALL KINDS OF CANCER IN MY FAMILY" LMP 1 1/2 WEEKS AGO, NORMAL. S/P BTL PCP: [facility]--ONLY GOES TO WALK IN CLINIC NEEDED. HAS NEVER HAD ROUTINE WELLNESS EXAMS Allergies and Home Medications Allergies Coded Allergies: No Known Drug Allergies (Unverified , 04/05/20) Patient Home Medication List Home Medication List Reviewed: Yes Sulfamethoxazole/Trimethoprim (Bactrim Ds Tablet) 1 Each Tablet, 1 EACH PO BID Prescribed by: CONSTANTINO HOWARD on 11/13/21 0103 Discontinued Medications Hydrocodone/Acetaminophen (Hydrocodone-Acetamin 5-325 mg) 1 Each Tablet, 1 TAB PO Q4H PRN for PAIN-MODERATE (5-7) Discontinued Reason: No Longer Taking Prescribed by: HIEU NUNN on 09/26/21 113 Last Action: Discontinued Methocarbamol (Methocarbamol) 750 Mg Tablet, 750 MG PO Q6-8HR Discontinued Reason: No Longer Taking Prescribed by: NAKUL GONZALEZ on 10/16/212040 Last Action: Discontinued Naproxen (Naproxen) 500 Mg Tablet.dr, 500 MG PO BID Discontinued Reason: No Longer Taking Prescribed by: HIEU NUNN on 09/26/21 1138 Last Action: Discontinued Naproxen (Naprosyn) 500 Mg Tablet, 500 MG PO BID PRN for PAIN-SEVERE (8-10) Discontinued Reason: No Longer Taking Prescribed by: NAKUL GONZALEZ on 10/16/212040 Last Action: Discontinued Review of Systems Review of Systems Constitutional: see HPI, fever EENTM: no symptoms reported Respiratory: no symptoms reported Cardiovascular: no symptoms reported Gastrointestinal: no symptoms reported Genitourinary: no symptoms reported : No Musculoskeletal: no symptoms reported Skin: see HPI Psychiatric/Neurological: No Symptoms Reported Hematologic/Lymphatic: No Symptoms Reported Immunological/Allergic: no symptoms reported Past Rijpwgn-Fitzoa-Jqstws Hx Patient Social History Tobacco Use?: Yes (1 PPD) Tobacco type used: Cigarettes Substance use?: No Alcohol Use?: No Pt feels they are or have been: No Immunizations Up To Date Tetanus Booster (TDap): Unknown PED Vaccines UTD: Yes Seasonal Allergies Seasonal Allergies: No Past Medical History Surgery/Hospitalization HX: , TUBAL Surgeries: Yes Section, Tubal Ligation Respiratory: No Cardiac: No Neurological: No Reproductive Disorders: No [employer] History: Tubal Ligation Sexually Transmitted Disease: Yes (GONORRHEA 2020) Genitourinary: No Gastrointestinal: No Musculoskeletal: No Endocrine: No HEENT: No Cancer: No Psychosocial: Yes Anxiety Integumentary: No Blood Disorders: No Physical Exam Vital Signs Vital Signs - First Documented 11/12/21 23:43 Temp 36.9 Pulse 84 Resp 18 B/P (MAP) 124/81 (95) Pulse Ox 98 O2 Delivery Room Air Capillary Refill : Less Than 3 Seconds Height, Weight, BMI Height: '" Weight: lbs. oz. kg; 20.00 BMI Method: General Appearance: No Apparent Distress, WD/WN, Thin Neck: Normal Inspection Respiratory: Normal Breath Sounds, No Accessory Muscle Use, No Respiratory Distress Cardiovascular: Regular Rate, Rhythm Gastrointestinal: Soft Extremity: Normal Inspection Neurologic/Psychiatric: Alert, Oriented x3, No Motor/Sensory Deficits, Normal Mood/Affect Skin: Normal Color, Warm/Dry, Other (LEFT BREAST WITH APPROXMIATELY 4 CM FIRM MASS IN AND AROUND NIPPLE, WITH RETRACTION OF NIPPLE. NO DRAINAGE. THERE IS SLIGHT ERYTHEMA TO NIPPLE AND APPROXIMATELY 1 CM BEYOND EDGES OF NIPPLE. ) Focused Exam Sepsis Stage: Ruled Out Reason for ruling out sepsis: DOES NOT MEET CRITERIA Possible Source: Skin/Soft Tissue Lactate Level 11/12/21 00:10: Lactic Acid Level 0.65 Time of Focused Exam: 01:00 Respiratory: Normal Breath Sounds Cardiovascular: Regular Rate, Rhythm Skin: normal color, warm/dry Lactic Acid Level Laboratory Tests Test 11/12/21 00:10 Lactic Acid Level 0.65 MMOL/L (0.50-2.00) Within 3hrs of presentation: Admin ABX, Blood cultures prior to ABX's, Focus exam, Lactate level Progress/Results/Core Measures Suspected Sepsis SIRS Temperature: Pulse: 84 Respiratory Rate: 18 Laboratory Tests 11/12/21 00:10: White Blood Count 6.9 Blood Pressure 124 /81 Mean: 95 11/12/21 00:10: Lactic Acid Level 0.65 Laboratory Tests 11/12/21 00:10: Creatinine 0.74, Platelet Count 267, Total Bilirubin 0.2 Results/Orders Lab Results Laboratory Tests Test 11/12/21 00:10 11/13/21 00:10 Range/Units White Blood Count 6.9 4.3-11.0 10^3/uL Red Blood Count 4.18 3.80-5.11 10^6/uL Hemoglobin 13.4 11.5-16.0 g/dL Hematocrit 39 35-52 % Mean Corpuscular Volume 94 80-99 fL Mean Corpuscular Hemoglobin 32 25-34 pg Mean Corpuscular Hemoglobin Concent 34 32-36 g/dL Red Cell Distribution Width 12.4 10.0-14.5 % Platelet Count 267 130-400 10^3/uL Mean Platelet Volume 9.9 9.0-12.2 fL Immature Granulocyte % (Auto) 0 % Neutrophils (%) (Auto) 45 42-75 % Lymphocytes (%) (Auto) 38 12-44 % Monocytes (%) (Auto) 14 H 0-12 % Eosinophils (%) (Auto) 3 0-10 % Basophils (%) (Auto) 1 0-10 % Neutrophils # (Auto) 3.1 1.8-7.8 10^3/uL Lymphocytes # (Auto) 2.6 1.0-4.0 10^3/uL Monocytes # (Auto) 1.0 0.0-1.0 10^3/uL Eosinophils # (Auto) 0.2 0.0-0.3 10^3/uL Basophils # (Auto) 0.0 0.0-0.1 10^3/uL Immature Granulocyte # (Auto) 0.0 0.0-0.1 10^3/uL Sodium Level 136 135-145 MMOL/L Potassium Level 3.5 L 3.6-5.0 MMOL/L Chloride Level 105 98-107 MMOL/L Carbon Dioxide Level 20 L 21-32 MMOL/L Anion Gap 11 5-14 MMOL/L Blood Urea Nitrogen 8 7-18 MG/DL Creatinine 0.74 0.60-1.30 MG/DL Estimat Glomerular Filtration Rate 108 BUN/Creatinine Ratio 11 Glucose Level 96 70-105 MG/DL Lactic Acid Level 0.65 0.50-2.00 MMOL/L Calcium Level 8.7 8.5-10.1 MG/DL Corrected Calcium 8.9 8.5-10.1 MG/DL Total Bilirubin 0.2 0.1-1.0 MG/DL Aspartate Amino Transf (AST/SGOT) 19 5-34 U/L Alanine Aminotransferase (ALT/SGPT) 20 0-55 U/L Alkaline Phosphatase 67 40-136 U/L Total Protein 6.4 6.4-8.2 GM/DL Albumin 3.7 3.2-4.5 GM/DL Serum Test, Qualitative NEGATIVE NEGATIVE My Orders Orders - CONSTANTINO HOWARD DO Ed Iv/Invasive Line Start (11/12/21 23:58) Cbc With Automated Diff (11/12/21 23:58) Comprehensive Metabolic Panel (11/12/21 23:58) Blood Culture (11/12/21 23:58) Ed Iv/Invasive Line Start (11/12/21 23:58) Ed Iv/Invasive Line Start (11/12/21 23:58) Vital Signs Adult Sepsis Patie Q15M (11/12/21 23:58) Remove Rings In Anticipation O (11/12/21 23:58) Lactic Acid Analyzer (11/12/21 23:58) Cefazolin Injection (Ancef Injection) (11/13/21 00:00) Hcg,Qualitative Serum (11/13/21 00:17) Medications Given in ED Current Medications Medications Dose Ordered Sig/Alicia Route Start Time Stop Time Status Last Admin Dose Admin Cefazolin Sodium 1000 mg/Sodium Chloride 50 ml @ 100 mls/hr ONCE ONCE IV 11/13/21 00:00 11/13/21 00:29 DC 11/13/21 00:18 100 MLS/HR Vital Signs/I&O 11/12/21 11/13/21 23:43 01:05 Temp 36.9 36.8 Pulse 84 79 Resp 18 18 B/P (MAP) 124/81 (95) 122/79 Pulse Ox 98 99 O2 Delivery Room Air Room Air Capillary Refill : Less Than 3 Seconds Blood Pressure Mean: 95 Progress Note : Progress Note SEPSIS PROTOCOL INITIATED GIVEN IV ANTIBIOTICS SYMPTOMS IMPROVED AT DISMISSAL NO FEVER OR ABNORMAL VITALS DURING [facility] STAY STRESSED THE IMPORTANCE OF FOLLOW UP WITH [facility] FOR THIS PROBLEM WELL MAKING AN APPOINTMENT FOR ROUTINE WELLNESS/WELL WOMAN EXAM AND NEED FOR MAMMOGRAM IN NEAR FUTURE Departure Impression Primary Impression: LEFT BREAST MASS WITH CELLULITIS Disposition: HOME, SELF-CARE Condition: Stable Departure-Patient Inst. Decision time for Depature: 00:57 Referrals: [facility] (PCP/Family) Primary Care Physician Patient Instructions: Common Breast Problems, How to Perform Breast Self- Examination, Mastitis (DC) Add. Discharge Instructions: MOIST HEAT TO AREA AT 20 MINUTE INTERVALS TYLENOL AND MOTRIN NEEDED FOR PAIN OR FEVER FOLLOW UP WITH [facility] IN 2-3 DAYS FOR FURTHER CARE FOR FOLLOW UP OF THIS PROBLEM YOU ALSO NEED TO SCHEDULE AN APPOINTMENT FOR ROUTINE WELLNESS EXAM, INCLUDING A WELL WOMAN EXAM, AND ARRANGE FOR A MAMMOGRAM WHEN CLEARED BY YOUR DR. All discharge instructions reviewed with patient and/or family. Voiced understanding. Scripts Sulfamethoxazole/Trimethoprim (Bactrim Ds Tablet) 1 Each Tablet 1 EACH PO BID, #20 TAB Prov: CONSTANTINO HOWARD DO 11/13/21 Work/School Note: Work Release Form Date Seen in the Emergency Department: Nov 12, 2021 Return to Work: Nov 14, 2021 CONSTANTINO HOWARD DO Nov 13, 2021 00:05
[2021-11-13 00:23] LABS: BASOPHILS % (AUTO) 1 % (0-10); EOSINOPHILS # (AUTO) 0.2 10^3/uL (0.0-0.3); EOSINOPHILS % (AUTO) 3 % (0-10); HEMATOCRIT 39 % (35-52); HEMOGLOBIN 13.4 g/dL (11.5-16.0); LYMPHOCYTES # (AUTO) 2.6 10^3/uL (1.0-4.0); LYMPHOCYTES % (AUTO) 38 % (12-44); MEAN CORPUSCULAR HEMOGLOBIN 32 pg (25-34); MEAN CORPUSCULAR HGB CONC 34 g/dL (32-36); MEAN CORPUSCULAR VOLUME 94 fL (80-99); MEAN PLATELET VOLUME 9.9 fL (9.0-12.2); MONOCYTES % (AUTO) 14 % (0-12); NEUTROPHILS # (AUTO) 3.1 10^3/uL (1.8-7.8); NEUTROPHILS % (AUTO) 45 % (42-75); PLATELET COUNT 267 10^3/uL (130-400); WHITE BLOOD COUNT 6.9 10^3/uL (4.3-11.0)
[2021-11-13 00:40] LABS: ALBUMIN 3.7 GM/DL (3.2-4.5); POTASSIUM 3.5 MMOL/L (3.6-5.0)
[2021-11-13 00:41] LABS: CALCIUM 8.7 MG/DL (8.5-10.1)
[2021-11-13 00:42] LABS: TOTAL PROTEIN 6.4 GM/DL (6.4-8.2)
[2021-11-13 00:44] LABS: BILIRUBIN,TOTAL 0.2 MG/DL (0.1-1.0)
[2021-11-13 00:46] LABS: CREATININE SERUM 0.74 MG/DL (0.60-1.30)
[2021-11-13] MEDS ORDERED: SULF1TAB38 PO (01:03)
[2021-11-13 01:05] VITALS: BP 122/79
== END 2021-11-13 01:08 | disposition home or self-care (01) ==
LOC: EDUNIT# 23:35 → ER 23:39
DX: N63.20 Unspecified lump in the left breast, unspecified quadrant (principal); R50.9 Fever, unspecified
CPT/HCPCS: 36415; 80053; 83605; 84703; 85025; 87040; 96365

== ENCOUNTER 2021-12-27 19:26 | Emergency (ER) | payer SELFPAY ==
[~2021-12-27] VITALS: Ht 160 cm; Wt 53.6 kg
[~2021-12-27 19:26] MED LIST changes: +SULF1TAB38 PO
[2021-12-27 19:30] VITALS: BP 105/61
--- NOTE | 2021-12-27 19:55 | ED Cough/URI ---
General Chief Complaint: Fever-Adult/Adol Stated Complaint: FEVER Source: patient Exam Limitations: no limitations (TIFFANIE STERN) History of Present Illness Date Seen by Provider: Dec 27, 2021 Time Seen by Provider: 19:53 Initial Comments Patient is a 36-year-old female who presents ED with flulike symptoms. She r eports of body aches chills weakness and fever. Symptoms started this morning when she woke up. She reports temperature 103. Took ibuprofen around 12 and Tylenol around 6. She was febrile on arrival. She reports some mild cramping in her legs. She denies of any sore throat, ear pain, headache, dizziness, chest pain, cough, shortness of breath, abdominal pain, vomiting, diarrhea. She states her boyfriend tested positive. She had 2 test yesterday negative as well as 2 home test today that were negative. She works in [employer] requesting COVID swab. Refusing any lab work at this time. She reports history of hypotension which she is 100/61 on arrival. Patient is not vaccinated. Patient refusing any IV fluids. (TIFFANIE STERN) Allergies and Home Medications Allergies Coded Allergies: No Known Drug Allergies (Unverified , 04/05/20) Patient Home Medication List Home Medication List Reviewed: Yes (TIFFANIE STERN) Cephalexin (Cephalexin) 500 Mg Tablet, 500 MG PO BID Prescribed by: HIEU NUNN on 12/27/212034 Nirmatrelvir/Ritonavir (Paxlovid 150-100 mg Pack (Eua)) 150 Mg-100 Mg Tablet, 1 EACH PO BID Prescribed by: HIEU NUNN on 12/27/212034 Sulfamethoxazole/Trimethoprim (Bactrim Ds Tablet) 1 Each Tablet, 1 EACH PO BID Prescribed by: CONSTANTINO HOWARD on 11/13/21 0103 Review of Systems Review of Systems Constitutional: chills, malaise, weakness EENTM: No blurred vision, No double vision, No eye pain, No tearing, No throat pain, No throat swelling Respiratory: No cough, No short of breath, No wheezing Cardiovascular: No chest pain Gastrointestinal: No abdominal pain, No diarrhea, No nausea, No vomiting Genitourinary: No decreased output, No discharge Musculoskeletal: No back pain, No joint pain Skin: No change in color, No change in hair/nails Psychiatric/Neurological: Denies Anxiety (TIFFANIE STERN) All Other Systems Reviewed Negative Unless Noted: Yes (TIFFANIE STERN) Past Urisvgq-Upqcwg-Wdsela Hx Immunizations Up To Date Tetanus Booster (TDap): Unknown PED Vaccines UTD: Yes (TIFFANIE STERN) Seasonal Allergies Seasonal Allergies: No (TIFFANIE STERN) Past Medical History Surgery/Hospitalization HX: , TUBAL Surgeries: Yes Section, Tubal Ligation Respiratory: No Cardiac: No Neurological: No Reproductive Disorders: 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 oz. 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, no motor/sensory deficits, alert, normal mood/affect, oriented x 3 Skin: normal color, warm/dry (TIFFANIE STERN) Progress/Results/Core Measures Suspected Sepsis SIRS Temperature: Pulse: Respiratory Rate: Blood Pressure / Mean: (TIFFANIE STERN) Results/Orders Lab Results Laboratory Tests Test 12/27/21 19:56 Range/Units Urine Color YELLOW Urine Clarity SL CLOUDY Urine pH 5.5 5-9 Urine Specific [place] 1.025 H 1.016-1.022 Urine Protein NEGATIVE NEGATIVE Urine Glucose (UA) NEGATIVE NEGATIVE Urine Ketones TRACE H NEGATIVE Urine Nitrite NEGATIVE NEGATIVE Urine Bilirubin NEGATIVE NEGATIVE Urine Urobilinogen 0.2 < = 1.0 MG/DL Urine Leukocyte Esterase 1+ H NEGATIVE Urine RBC (Auto) NEGATIVE NEGATIVE Urine RBC 5-10 H /HPF Urine WBC 10-25 H /HPF Urine Squamous Epithelial Cells 10-25 H /HPF Urine Renal Epithelial Cells NONE /HPF Urine Crystals NONE /LPF Urine Bacteria MODERATE H /HPF Urine Casts NONE /LPF Urine Mucus MODERATE H /LPF Urine Culture Indicated YES Influenza Type A (RT-PCR) Not Detected Not Detecte Influenza Type B (RT-PCR) Not Detected Not Detecte SARS-CoV-2 RNA (RT-PCR) Detected H Not Detecte (CONSTANTINO HOWARD DO) Micro Results Microbiology 12/27/21 Urine Culture - Final, Complete NO GROWTH (CONSTANTINO HOWARD DO) Vital Signs/I&O 12/27/21 12/27/21 19:30 20:15 Temp 39.4 39.2 Pulse 105 Resp 22 B/P (MAP) 105/61 (76) Pulse Ox 95 O2 Delivery Room Air (CONSTANTINO HOWARD DO) Vital Signs/I&O Capillary Refill : (TIFFANIE STERN) Departure Communication (PCP) Patient was tachycardic and slightly hypotensive. She states she has a history of ibuprofen. She states her significant other has COVID. She has not been vaccinated. Refused any lab work lw blood pressure. She was febrile and was given or IV fluids. She denies any vomiting or diarrhea. No known medical problems. Tested positive for COVID. Urinalysis concerning for urinary tract infection negative for . Will treat with Keflex as she states that she has a history of UTIs and becomes sick quickly. Not concern for sexual transmitted infection or vaginal discharge or bleeding. Patient refused monoclonal antibody. She meet criteria with not being vaccinated. Will discharge with Paxlovid. Self quarantine for 10 days as she is not vaccinated. If any worsening symptoms such as dehydration, worsening cramping, dyspnea, chest pain, to return back to ED. patient was still febrile at 102. Patient does not want to wait or not wanting any IV fluids. She states she needs to go home. Continue with Tylenol ibuprofen at home. Recommend oral hydration and staying hydrated. (TIFFANIE STERN) Impression Primary Impression: COVID-19 Additional Impression: UTI (urinary tract infection) Disposition: HOME, SELF-CARE Condition: Stable Departure-Patient Inst. Decision time for Depature: 20:31 (TIFFANIE STERN) Referrals: [facility] (PCP/Family) Primary Care Physician Patient Instructions: COVID-19 ED Scripts Cephalexin (Cephalexin) 500 Mg Tablet 500 MG PO BID for 7 Days, #14 TAB Prov: TIFFANIE STERN 12/27/21 Nirmatrelvir/Ritonavir (Paxlovid 150-100 mg Pack (Eua)) 150 Mg-100 Mg Tablet 1 EACH PO BID for 5 Days, #10 TAB Prov: TIFFANIE STERN 12/27/21 Work/School Note: Work Release Form Date Seen in the Emergency Department: Dec 27, 2021 Return to Work: Jan 05, 2022 ATTENDING PHYSICIAN NOTE: I WAS PHYSICALLY PRESENT ER PHYSICIAN, BUT I WAS NOT INVOLVED IN ANY DECISION MAKING OR ANY CARE OF THIS PATIENT. (CONSTANTINO HOWARD DO) TIFFANIE STERN Dec 27, 2021 19:55 CONSTANTINO HOWARD DO Dec 30, 2021 05:50
[2021-12-27] MEDS ORDERED: IBUPROFEN 600 MG (MOTRIN) TAB PO ONE (20:00)
[2021-12-27 20:04] LABS: BILIRUBIN,URINE NEGATIVE (NEGATIVE); CLARITY,URINE SL CLOUDY; COLOR,URINE YELLOW; GLUCOSE, URINE (UA) NEGATIVE (NEGATIVE); KETONES,URINE TRACE (NEGATIVE); LEUKOCYTE ESTERASE ,URINE 1+ (NEGATIVE); NITRITE,URINE NEGATIVE (NEGATIVE); PH,URINE 5.5 (5-9); PROTEIN,URINE NEGATIVE (NEGATIVE)
[2021-12-27 20:18] LABS: BACTERIA,URINE MODERATE /HPF
[2021-12-27] MEDS ORDERED: CEPH500T PO (20:35)
[2021-12-27] MEDS ORDERED: NIRM1TAB5 PO (20:35)
== END 2021-12-27 20:55 | disposition home or self-care (01) ==
LOC: EDUNIT# 19:26 → ER 19:31
DX: U07.1 COVID-19 (principal); N39.0 Urinary tract infection, site not specified; Z28.310 Unvaccinated for COVID-19
CPT/HCPCS: 81000; 87088; 87636; 99283

== ENCOUNTER 2022-01-07 08:35 | Emergency (ER) | payer SELFPAY ==
[~2022-01-07] VITALS: Ht 157.5 cm; Wt 53.5 kg
[~2022-01-07 08:35] MED LIST changes: +CEPH500T PO; +NIRM1TAB5 PO
[2022-01-07] MEDS ORDERED: L.E.T. SOLUTION 3 ML SYR TOP ONE (10:45)
[2022-01-07] MEDS ORDERED: CEPHALEXIN 250 MG (KEFLEX) CAP PO STA (11:58)
[2022-01-07] MEDS ORDERED: TRIM/SULFAMETH 160/800 (SEPTRA DS) TAB PO ONE (12:00)
--- NOTE | 2022-01-07 12:07 | ED General ---
General Chief Complaint: Skin/Wound Problems Stated Complaint: LUMP IN L BREAST - SWOLLEN / RED Nursing Triage Note: PT AMB TO RM 8 WITH COMPLAINT OF REDNESS AND SWELLING OF LEFT BREAST. STATES BEEN THERE A WEEK AND HAS WORSENED. Source of Information: Patient Exam Limitations: No Limitations History of Present Illness Date Seen by Provider: Jan 07, 2022 Time Seen by Provider: 10:30 Initial Comments This 36-year-old woman presents to the emergency room with a large left breast abscess that seems to be most fluctuant over the left areola and nipple. She has localized erythema of the surrounding skin and induration deep into the breast tissue. She denies systemic symptoms of fever, chills, etc. The abscess has not been draining. Patient reports presently being on Keflex for a urinary tract infection. Allergies and Home Medications Allergies Coded Allergies: No Known Drug Allergies (Unverified , 04/05/20) Patient Home Medication List Home Medication List Reviewed: Yes Cephalexin (Cephalexin) 500 Mg Tablet, 500 MG PO BID Prescribed by: HIEU NUNN on 12/27/212034 Clindamycin HCl (Clindamycin HCl) 300 Mg Capsule, 300 MG PO QID Prescribed by: TRISTIN SINGH on 01/07/22 121 Hydrocodone/Acetaminophen (Hydrocodone-Acetamin 5-325 mg) 5 Mg-325 Mg Tablet, 1 TAB PO Q4H PRN for PAIN-BREAKTHROUGH Prescribed by: TRISTIN SINGH on 01/07/22 121 Nirmatrelvir/Ritonavir (Paxlovid 150-100 mg Pack (Eua)) 150 Mg-100 Mg Tablet, 1 EACH PO BID Prescribed by: HIEU NUNN on 12/27/212034 Sulfamethoxazole/Trimethoprim (Bactrim Ds Tablet) 1 Each Tablet, 1 EACH PO BID Prescribed by: CONSTANTINO HOWARD on 11/13/21 0103 Sulfamethoxazole/Trimethoprim (Bactrim Ds Tablet) 1 Each Tablet, 1 EACH PO BID Prescribed by: TRISTIN SINGH on 01/07/221210 Review of Systems Review of Systems Constitutional: no symptoms reported EENTM: no symptoms reported Respiratory: no symptoms reported Cardiovascular: no symptoms reported Gastrointestinal: no symptoms reported Genitourinary: no symptoms reported : No Musculoskeletal: no symptoms reported Skin: see HPI Psychiatric/Neurological: No Symptoms Reported Hematologic/Lymphatic: No Symptoms Reported Past Wicough-Yejbwr-Qpdlno Hx Patient Social History Tobacco Use?: Yes Tobacco type used: Cigarettes Smoking Status: Current Everyday Smoker Use of E-Cig and/or Vaping dev: No Substance use?: No Alcohol Use?: No Pt feels they are or have been: No Immunizations Up To Date Tetanus Booster (TDap): Unknown PED Vaccines UTD: Yes Seasonal Allergies Seasonal Allergies: No Past Medical History Surgery/Hospitalization HX: , TUBAL Surgeries: Yes Section, Tubal Ligation Respiratory: No Cardiac: No Neurological: No 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 oz. kg; 21.00 BMI Method: General Appearance: No Apparent Distress, WD/WN, Thin HEENT: Normal ENT Inspection Respiratory: Lungs Clear, Normal Breath Sounds, No Accessory Muscle Use Cardiovascular: Regular Rate, Rhythm, No Edema, No Murmur Extremity: Normal Inspection Neurologic/Psychiatric: Alert, Oriented x3, No Motor/Sensory Deficits Skin: Warm/Dry, Other (The left breast is swollen, especially the left nipple, areola, and surrounding tissue. The left edge of the areola is the most fluctuant region. There is surrounding induration and the skin is erythematous surrounding the region. The abscess itself is likely 4 to 6 cm with the induration and erythema extending several centimeters beyond that.) Procedures/Interventions I&D : Blade Size: 11 Progress Patient was offered generalized pain management with Toradol injection. She declined. Unfortunately, the nature of this abscess did not lend itself well to anesthetic by injection. LET was attempted but did not work very well. Skin was cleaned with chlorhexidine wipes. An incision about 3 to 4 mm was made over the most fluctuant area. It was difficult to make a large enough incision due to the elastic nature of the tissue and patient's tolerance of the pain. A sufficient incision was made to allow drainage. Pressure was applied from various directions to express the pus. There was a copious amount of very foul smelling bloody pus drained from the abscess. Pressure was repeatedly applied until no more purulent material could be evacuated. A 20-gauge IV catheter was used with a saline flush to rinse the abscess cavity. Again pressure was used to express the contents which returned relatively clear. Patient was started on clindamycin and Bactrim. She was advised to finish out the Keflex she was also taking. She was given ibuprofen prior to discharge to help with pain management. See discharge instructions for more discussion. Progress/Results/Core Measures Suspected Sepsis SIRS Temperature: Pulse: 92 Respiratory Rate: 16 Blood Pressure 109 /66 Mean: 80 Results/Orders Micro Results Microbiology 01/07/22 Gram Stain - Final, Resulted 01/07/22 Wound Culture, Resulted Pending My Orders Orders - TRISTIN MCDONALD MD Let Solution (Let Solution) (01/07/22 10:45) Wound Culture (01/07/22 10:40) Sulfamethoxazole/Trimet Ds Tab (Bactrim (01/07/22 12:00) Cephalexin Capsule (Keflex Capsule) (01/07/22 11:58) Clindamycin Capsule (Cleocin Capsule) (01/07/22 12:15) Ibuprofen Tablet (Motrin Tablet) (01/07/22 12:15) Medications Given in ED Vital Signs/I&O 01/07/22 01/07/22 09:06 12:23 Temp 35.6 35.6 Pulse 92 92 Resp 16 16 B/P (MAP) 109/66 (80) 109/66 Pulse Ox 98 98 O2 Delivery Room Air Room Air Capillary Refill : Less Than 3 Seconds Blood Pressure Mean: 80 Departure Impression Primary Impression: Left breast abscess Additional Impression: Cellulitis of female breast Disposition: 01 HOME, SELF-CARE Condition: Improved Departure-Patient Inst. Decision time for Depature: 12:02 Referrals: [facility] (PCP/Family) Primary Care Physician Patient Instructions: Abscess Incision and Drainage, Cellulitis (Skin Infection), Adult ED Add. Discharge Instructions: As much as possible over the next 48 hours keep a warm moist compress over the incision site or soak in warm water. You may add chlorhexidine soap to the warm compresses and to your bath water to provide antibacterial effect. The soaking and warm compresses should encourage the abscess to continue draining. You may gently apply pressure around the abscess in different directions to attempt expressing more pus from the abscess over the next couple of days. For primary pain control you may take ibuprofen up to 600 mg every 6 hours as needed. Add hydrocodone for pain not controlled by ibuprofen. Hydrocodone may cause constipation and drowsiness. You may wish to use a stool softener such as [id number] Colace while on hydrocodone. Do not drive or operate machinery on hydrocodone. Complete your antibiotics as prescribed. Follow-up with your primary care provider on Monday. You should review culture results with your primary care provider on Monday. You should have a repeat exam early next week. You may return to the emergency room at anytime for a wound check or reevaluation. Please return to the emergency room promptly if you have worsening symptoms that include fever, chills, notable spreading of redness and swelling, or any other significant changes. You will likely have significant bruising around the left breast due to the incision and drainage procedure. All discharge instructions reviewed with patient and/or family. Voiced understanding. Scripts Hydrocodone/Acetaminophen (Hydrocodone-Acetamin 5-325 mg) 5 Mg-325 Mg Tablet 1 TAB PO Q4H PRN for PAIN-BREAKTHROUGH, #15 TAB Prov: TRISTIN MCDONALD MD 01/07/22 Sulfamethoxazole/Trimethoprim (Bactrim Ds Tablet) 1 Each Tablet 1 EACH PO BID, #20 TAB Prov: TRISTIN MCDONALD MD 01/07/22 Clindamycin HCl (Clindamycin HCl) 300 Mg Capsule 300 MG PO QID, #40 CAP Prov: TRISTIN MCDONALD MD 01/07/22 Work/School Note: Work Release Form Date Seen in the Emergency Department: Jan 07, 2022 Return to Work: Jan 09, 2022 Restrictions: No Restrictions Copy Copies To 1: [facility]/TRISTIN ALVAREZ MD Jan 07, 2022 12:07
[2022-01-07] MEDS ORDERED: CLIN-144 PO (12:11)
[2022-01-07] MEDS ORDERED: SULF1TAB38 PO (12:11)
[2022-01-07] MEDS ORDERED: ACHD5005 PO (12:11)
[2022-01-07] MEDS ORDERED: CLINDAMYCIN 150 MG (CLEOCIN) CAP PO ONE (12:15)
[2022-01-07] MEDS ORDERED: IBUPROFEN TABLET 200 MG TAB PO ONE (12:15)
[2022-01-07 12:23] VITALS: BP 109/66
== END 2022-01-07 12:23 | disposition home or self-care (01) ==
LOC: EDUNIT# 08:35 → ER 08:37
DX: N61.1 Abscess of the breast and nipple (principal); F17.210 Nicotine dependence, cigarettes, uncomplicated
CPT/HCPCS: 10060; 87070; 87077; 87205

== ENCOUNTER 2022-02-06 18:52 | Emergency (ER) | payer SELFPAY ==
[~2022-02-06 18:52] MED LIST changes: +CLIN-144 PO
[2022-02-06] MEDS ORDERED: AMOX875T2 PO (19:39)
--- NOTE | 2022-02-06 19:40 | ED Integumentary General ---
General Chief Complaint: Skin/Wound Problems Stated Complaint: L SIDE CHEST CYST Nursing Triage Note: TO ED VIA POV AND AMBULATORY TO ROOM 7 WITH C/O LEFT BREAST ABSCESS THAT "KEEPS DRAINING". SEEN A MONTH AGO IN THIS ER FOR ABSCESS AND TX WITH BACTRIM (WHICH PT STOPPED TAKING BECAUSE IT MADE HER SICK WHEN "IN THE SUN") AND CLINDAMYCIN WHICH SHE COMPLETED. History of Present Illness Date Seen by Provider: Feb 06, 2022 Time Seen by Provider: 19:35 Initial Comments Patient is a 36-year-old female presents ED with drainage from an abscess around her left areola. She noted some drainage for the past week. Purulent drainage usually occurs on palpation. Patient had a abscess drained here in the ER 1 month ago. She was given clindamycin and Bactrim but did take the clindamycin with improvement. She has some very localized redness to the area. Mild pain on palpation. She denies following up. She denies fever, chills, nausea, vomiting, diarrhea, nipple drainage. Allergies and Home Medications Allergies Coded Allergies: No Known Drug Allergies (Unverified , 04/05/20) Patient Home Medication List Home Medication List Reviewed: Yes Amoxicillin (Amoxicillin) 875 Mg Tablet, 875 MG PO BID Prescribed by: HIEU NUNN on 02/06/221938 Cephalexin (Cephalexin) 500 Mg Tablet, 500 MG PO BID Prescribed by: HIEU NUNN on 12/27/212034 Clindamycin HCl (Clindamycin HCl) 300 Mg Capsule, 300 MG PO QID Prescribed by: TRISTIN SINGH on 01/07/22 1211 Hydrocodone/Acetaminophen (Hydrocodone-Acetamin 5-325 mg) 5 Mg-325 Mg Tablet, 1 TAB PO Q4H PRN for PAIN-BREAKTHROUGH Prescribed by: TRISTIN SINGH on 01/07/22 1212 Nirmatrelvir/Ritonavir (Paxlovid 150-100 mg Pack (Eua)) 150 Mg-100 Mg Tablet, 1 EACH PO BID Prescribed by: HIEU NUNN on 12/27/212034 Sulfamethoxazole/Trimethoprim (Bactrim Ds Tablet) 1 Each Tablet, 1 EACH PO BID Prescribed by: CONSTANTINO HOWARD on 11/13/21 0103 Sulfamethoxazole/Trimethoprim (Bactrim Ds Tablet) 1 Each Tablet, 1 EACH PO BID Prescribed by: TRISTIN SINGH on 01/07/22 1211 Review of Systems Review of Systems Constitutional: No chills, No diaphoresis, No malaise, No weakness EENTM: No tearing, No mouth pain, No mouth swelling Respiratory: No cough, No dyspnea on exertion Cardiovascular: No chest pain Gastrointestinal: No abdominal pain, No diarrhea, No nausea, No vomiting Genitourinary: No decreased output Musculoskeletal: No back pain, No joint pain Skin: change in color, lesions All Other Systems Reviewed Negative Unless Noted: Yes Past Tnfefhq-Trjvoc-Tugpvg Hx Patient Social History Tobacco Use?: Yes Tobacco type used: Cigarettes Smoking Status: Current Everyday Smoker Immunizations Up To Date Tetanus Booster (TDap): Unknown PED Vaccines UTD: Yes Seasonal Allergies Seasonal Allergies: No Past Medical History Surgery/Hospitalization HX: , TUBAL Surgeries: Yes Section, Tubal Ligation Respiratory: No Cardiac: No Neurological: No Reproductive Disorders: 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 Sexually Transmitted Disease: Yes (GONORRHEA 2020) Genitourinary: No Gastrointestinal: No Musculoskeletal: No Endocrine: No HEENT: No Cancer: No Psychosocial: Yes Anxiety Integumentary: No Blood Disorders: No Physical Exam Vital Signs Vital Signs - First Documented 02/06/22 19:13 Temp 36.9 Pulse 83 Resp 16 B/P (MAP) 103/77 (86) Pulse Ox 98 O2 Delivery Room Air Capillary Refill : Less Than 3 Seconds General Appearance: WD/WN, no apparent distress HEENT: PERRL/EOMI, normal ENT inspection, TMs normal, pharynx normal Neck: non-tender, full range of motion, supple, normal inspection Cardiovascular: regular rate, rhythm, no edema, no gallop, no JVD Respiratory: chest non-tender, lungs clear, normal breath sounds, no respiratory distress, no accessory muscle use Gastrointestinal: normal bowel sounds, non tender, soft, no organomegaly Back: normal inspection, no CVA tenderness Extremities: normal range of motion, non-tender, no pedal edema 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 Mild purulent drainage. No surrounding redness or swelling. No fluctuant mass.) Progress/Results/Core Measures Results/Orders Vital Signs/I&O 02/06/22 19:13 Temp 36.9 Pulse 83 Resp 16 B/P (MAP) 103/77 (86) Pulse Ox 98 O2 Delivery Room Air Blood Pressure Mean: 86 Departure Communication (PCP) Patient is a with a recurring abscess to the left breast. She had incision and drainage here in the ER 1 month ago. 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 She was started on a longer duration at this time of amoxicillin. Discussed probiotic. Active drainage at this time. Does not need any further incision and drainage. Likely a continue developing abscess but it is reassuring that is continued to drain without any surrounding redness or swelling at this time. Due to the location would likely benefit with a surgical follow-up and consult if needed further intervention due to the location on the breast tissue. If any worsening symptoms return back to ED for further evaluation. Patient agrees with plan of action. Impression Primary Impression: Abscess Disposition: 01 HOME, SELF-CARE Condition: Stable Departure-Patient Inst. Decision time for Depature: 19:38 Referrals: [facility] (PCP/Family) Primary Care Physician TAD MIKE MD Patient Instructions: Abscess Drainage, Percutaneous (DC) Scripts Amoxicillin (Amoxicillin) 875 Mg Tablet 875 MG PO BID for 14 Days, #28 TAB Prov: TIFFANIE STERN 02/06/22 TIFFANIE STERN Feb 06, 2022 19:40
[2022-02-06 19:44] VITALS: BP 103/77
== END 2022-02-06 19:46 | disposition home or self-care (01) ==
LOC: EDUNIT# 18:52 → ER 18:53
DX: N61.1 Abscess of the breast and nipple (principal); F17.210 Nicotine dependence, cigarettes, uncomplicated; Z28.310 Unvaccinated for COVID-19
CPT/HCPCS: 99282